=== PATIENT | female | born 1940 | race Caucasian/White ===

== ENCOUNTER 2018-01-24 14:25 | Inpatient (IN) | payer MEDICARE, OTHER ==
[2018-01-24 15:55] LABS: ADD MAN DIFF? NO
[2018-01-24 15:56] LABS: WHITE BLOOD COUNT 13.4 10^3/ul (4.8-10.8)
[2018-01-24 15:56] LABS: BASOPHILS % 0.3 % (0.0-2.0); EOSINOPHILS # 0.2 10^3/ul (0.0-0.5); EOSINOPHILS % 1.6 % (0.0-7.0); HEMATOCRIT 31.5 % (37.0-47.0); HEMOGLOBIN 9.9 g/dl (12.0-16.0); LYMPHOCYTES # 4.7 10^3/ul (0.8-2.9); LYMPHOCYTES % 35.3 % (15.0-51.0); MEAN CORPUSCULAR HEMOGLOBIN 23.1 pg (29.0-33.0); MEAN CORPUSCULAR HGB CONC 31.4 g/dl (32.0-37.0); MEAN CORPUSCULAR VOLUME 73.6 fl (82.0-101.0); MEAN PLATELET VOLUME 10.6 fl (7.4-10.4); MONOCYTE # 1.4 10^3/ul (0.3-0.9); MONOCYTES % 10.2 % (0.0-11.0); NEUTROPHILS % 52.1 % (39.0-77.0); PLATELET COUNT 579 10^3/UL (140-415); RED BLOOD COUNT 4.28 10^6/ul (4.20-5.40); RED CELL DISTRIBUTION WIDTH 21.5 % (11.5-14.5)
[2018-01-24] MEDS: HEPARIN 25000 UNITS/250 ML 250 ML IV (16:09)
[2018-01-24 16:14] LABS: INR 2.14; PROTIME 24.4 Sec (11.9-14.9); PT RATIO 1.9
[2018-01-24 16:15] LABS: PARTIAL THROMBOPLASTIN TIME 60.2 Sec (25.0-35.0)
[2018-01-24 16:23] LABS: ALANINE AMINOTRANSFERASE 28 IU/L (13-69); ALBUMIN 2.9 g/dl (3.3-4.9); ALBUMIN/GLOBULIN RATIO 0.85; ALKALINE PHOSPHATASE 215 IU/L (42-121); ANION GAP 15 (8-16); ASPARTATE AMINO TRANSFERASE 15 IU/L (15-46); BLOOD UREA NITROGEN 46 mg/dl (7-20); CALCIUM 9.4 mg/dl (8.4-10.2); CARBON DIOXIDE 16 mmol/L (21-31); CHLORIDE 122 mmol/L (97-110); CREATININE 1.24 mg/dl (0.44-1.00); GLUCOSE 122 mg/dl (70-220); POTASSIUM 3.3 mmol/L (3.5-5.1); SODIUM 150 mmol/L (135-144); TOTAL PROTEIN 6.3 g/dl (6.1-8.1)
[2018-01-24] MEDS: SOD CHLORIDE 0.9% 1,000 ML IV (19:12)
[2018-01-24] MEDS ORDERED: SOD CHLORIDE 0.9% 1,000 ML IV (19:19)
[2018-01-24] MEDS ORDERED: ACETAMINOPHEN 325 MG TAB PO (19:30)
[2018-01-24] MEDS ORDERED: ONDANSETRON 4 MG INJ IV ×2 (19:30→20:00)
[2018-01-24] MEDS ORDERED: DOCUSATE SODIUM 100 MG CAP PO (20:00)
[2018-01-24] MEDS ORDERED: BISACODYL (EC) 5 MG TAB PO (20:00)
[2018-01-24] MEDS ORDERED: NACL 0.9% 3 ML SYG IV (20:00)
[2018-01-24 21:29] LABS: HAAIG REFLEX REFLEX FILED
[2018-01-24 21:59] LABS: LACTIC ACID 1.8 mmol/L (0.5-2.0)
[2018-01-24 22:49] LABS: IRON 18 ug/dl (35-150)
[2018-01-24 22:58] LABS: % IRON SATURATION 8 % SAT (22-52); TOTAL IRON BINDING CAPACITY 216 ug/dl (241-421)
[2018-01-24 23:05] LABS: HEPATITIS B SURFACE ANTIBODY NEGATIVE (NEGATIVE)
[2018-01-24] MEDS: D5W + KCL 20 MEQ 1,000 ML IV (23:15)
[2018-01-24 23:22] LABS: HEPATITIS B SURFACE ANTIGEN NEGATIVE (NEGATIVE)
[2018-01-24 23:39] LABS: HEPATITIS B CORE ANTIBODY NEGATIVE (NEGATIVE); HEPATITIS C VIRAL ANTIBODY NEGATIVE (NEGATIVE)
[2018-01-25 00:27] LABS: INR 2.02; PROTIME 23.3 Sec (11.9-14.9); PT RATIO 1.8
[2018-01-25 01:35] LABS: PARTIAL THROMBOPLASTIN TIME 79.9 Sec (25.0-35.0)
[2018-01-25] MEDS: morphine 2 MG INJ IV ×2 (05:14→17:08)
[2018-01-25 06:09] LABS: ADD MAN DIFF? NO
[2018-01-25 06:21] LABS: ABNORMAL IP MESSAGE 1; BASOPHILS % 0.3 % (0.0-2.0); EOSINOPHILS # 0.2 10^3/ul (0.0-0.5); EOSINOPHILS % 1.3 % (0.0-7.0); HEMATOCRIT 33.7 % (37.0-47.0); HEMOGLOBIN 10.3 g/dl (12.0-16.0); LYMPHOCYTES # 4.2 10^3/ul (0.8-2.9); LYMPHOCYTES % 36.3 % (15.0-51.0); MEAN CORPUSCULAR HEMOGLOBIN 22.5 pg (29.0-33.0); MEAN CORPUSCULAR HGB CONC 30.6 g/dl (32.0-37.0); MEAN CORPUSCULAR VOLUME 73.6 fl (82.0-101.0); MEAN PLATELET VOLUME 10.9 fl (7.4-10.4); MONOCYTES % 8.4 % (0.0-11.0); NEUTROPHIL # 6.2 10^3/ul (1.6-7.5); NEUTROPHILS % 53.1 % (39.0-77.0); PLATELET COUNT 418 10^3/UL (140-415); RED BLOOD COUNT 4.58 10^6/ul (4.20-5.40); RED CELL DISTRIBUTION WIDTH 22.1 % (11.5-14.5)
[2018-01-25 06:21] LABS: WHITE BLOOD COUNT 11.7 10^3/ul (4.8-10.8)
[2018-01-25 06:38] LABS: POSITIVE DIFF @See below
[2018-01-25 06:49] LABS: ALANINE AMINOTRANSFERASE 19 IU/L (13-69); ALBUMIN 3.2 g/dl (3.3-4.9); ALBUMIN/GLOBULIN RATIO 0.88; ALKALINE PHOSPHATASE 207 IU/L (42-121); ANION GAP 16 (8-16); ASPARTATE AMINO TRANSFERASE 28 IU/L (15-46); BILIRUBIN,INDIRECT 0.1 mg/dl (0-1.1); BILIRUBIN,TOTAL 0.1 mg/dl (0.2-1.3); BLOOD UREA NITROGEN 46 mg/dl (7-20); CALCIUM 9.6 mg/dl (8.4-10.2); CARBON DIOXIDE 18 mmol/L (21-31); CHLORIDE 119 mmol/L (97-110); CREATININE 1.14 mg/dl (0.44-1.00); GLUCOSE 143 mg/dl (70-220); MAGNESIUM 1.7 mg/dl (1.7-2.5); POTASSIUM 3.8 mmol/L (3.5-5.1); SODIUM 149 mmol/L (135-144); TOTAL PROTEIN 6.8 g/dl (6.1-8.1)
[2018-01-25 07:00] LABS: TOTAL IRON BINDING CAPACITY 200 ug/dl (241-421)
[2018-01-25 07:02] LABS: IRON < 10 ug/dl (35-150)
[2018-01-25 08:25] LABS: HEMOGLOBIN A1C 7.5 % (0-5.9)
[2018-01-25 09:08] LABS: OSMOLALITY 309 mOsm/kg (280-295)
[2018-01-25 09:31] LABS: ADD UMIC NO; UR ASCORBIC ACID 40 mg/dL (NEGATIVE); UR BILIRUBIN (Dip) NEGATIVE (NEGATIVE); UR BLOOD (Dip) NEGATIVE (NEGATIVE); UR CLARITY CLEAR (CLEAR); UR COLOR YELLOW (YELLOW); UR GLUCOSE (Dip) NEGATIVE (NEGATIVE); UR KETONES (Dip) NEGATIVE (NEGATIVE); UR LEUKOCYTE ESTERASE (Dip) NEGATIVE Leu/ul (NEGATIVE); UR NITRITE (Dip) NEGATIVE (NEGATIVE); UR TOTAL PROTEIN (Dip) NEGATIVE (NEGATIVE); UR UROBILINOGEN (Dip) NEGATIVE (NEGATIVE)
[2018-01-25 09:49] LABS: SODIUM,URINE RANDOM < 13 mmol/L (30-90)
[2018-01-25] MEDS ORDERED: GLUCOSE GEL 15 GRAM TUBE PO ×2 (10:00)
[2018-01-25] MEDS ORDERED: DEXTROSE 50% 50 ML SYRINGE IV ×2 (10:00)
[2018-01-25] MEDS ORDERED: GLUCAGON 1 MG INJ IM (10:00)
[2018-01-25] MEDS ORDERED: GLUCOSE GEL 15 GRAM TUBE BUCCAL (10:00)
[2018-01-25 10:26] LABS: OSMOLALITY,URINE 602 mOsm/kg (250-1200)
[2018-01-25] MEDS: INSULIN ASPART [NOVOLOG] 3 ML PEN SC ×3 (12:02→21:00)
[2018-01-25] MEDS: D5W + KCL 20 MEQ 1,000 ML IV ×3 (12:33→21:16)
[2018-01-25 13:26] LABS: ANION GAP 14 (8-16); BLOOD UREA NITROGEN 42 mg/dl (7-20); CALCIUM 9.3 mg/dl (8.4-10.2); CARBON DIOXIDE 17 mmol/L (21-31); CHLORIDE 118 mmol/L (97-110); CREATININE 1.07 mg/dl (0.44-1.00); GLUCOSE 172 mg/dl (70-220); POTASSIUM 3.7 mmol/L (3.5-5.1); SODIUM 145 mmol/L (135-144)
[2018-01-25 16:06] LABS: ANION GAP 13 (8-16); BLOOD UREA NITROGEN 40 mg/dl (7-20); CALCIUM 9.1 mg/dl (8.4-10.2); CARBON DIOXIDE 18 mmol/L (21-31); CHLORIDE 117 mmol/L (97-110); CREATININE 1.05 mg/dl (0.44-1.00); GLUCOSE 181 mg/dl (70-220); POTASSIUM 3.8 mmol/L (3.5-5.1); SODIUM 144 mmol/L (135-144)
[2018-01-25] MEDS: ERGOCALCIFEROL 50,000 UNIT CAP PO (18:00)
[2018-01-25] MEDS ORDERED: GUAIFENESIN 20 MG/ML 5ML CUP PO (18:00)
[2018-01-25] MEDS ORDERED: LOPERAMIDE 2 MG CAP PO (18:00)
[2018-01-25] MEDS ORDERED: MAGNESIUM HYDROXIDE 30ML CUP PO (18:00)
[2018-01-25] MEDS ORDERED: MINERAL OIL 133 ML ENEMA PR (18:00)
[2018-01-25 18:43] LABS: ANION GAP 16 (8-16); BLOOD UREA NITROGEN 38 mg/dl (7-20); CALCIUM 9.4 mg/dl (8.4-10.2); CARBON DIOXIDE 17 mmol/L (21-31); CHLORIDE 115 mmol/L (97-110); CREATININE 1.01 mg/dl (0.44-1.00); GLUCOSE 145 mg/dl (70-220); POTASSIUM 3.6 mmol/L (3.5-5.1); SODIUM 144 mmol/L (135-144)
[2018-01-25] MEDS: COLCHICINE 0.6 MG TAB PO (21:17)
[2018-01-25] MEDS: ROPINIROLE 0.25 MG TAB PO (21:17)
[2018-01-25] MEDS: LEVETIRACETAM 500 MG TAB PO (21:18)
[2018-01-25] MEDS: AMIODARONE 200 MG TAB PO (21:18)
[2018-01-25] MEDS: APIXABAN 5 MG TABLET PO (21:18)
[2018-01-25] MEDS: LOSARTAN 25 MG TAB PO (21:18)
[2018-01-25 21:19] LABS: ANION GAP 15 (8-16); BLOOD UREA NITROGEN 37 mg/dl (7-20); CALCIUM 9.3 mg/dl (8.4-10.2); CARBON DIOXIDE 17 mmol/L (21-31); CHLORIDE 116 mmol/L (97-110); CREATININE 0.94 mg/dl (0.44-1.00); GLUCOSE 131 mg/dl (70-220); POTASSIUM 3.8 mmol/L (3.5-5.1); SODIUM 144 mmol/L (135-144)
[2018-01-26] MEDS: morphine 2 MG INJ IV (00:51)
[2018-01-26 01:22] LABS: ANION GAP 19 (8-16); BLOOD UREA NITROGEN 36 mg/dl (7-20); CALCIUM 9.4 mg/dl (8.4-10.2); CARBON DIOXIDE 16 mmol/L (21-31); CHLORIDE 114 mmol/L (97-110); CREATININE 0.96 mg/dl (0.44-1.00); GLUCOSE 175 mg/dl (70-220); SODIUM 145 mmol/L (135-144)
[2018-01-26] MEDS: ACCU-CHEK XX (01:57)
[2018-01-26] MEDS: LORAZEPAM 2 MG INJ IV (04:33)
[2018-01-26] MEDS: INSULIN ASPART [NOVOLOG] 3 ML PEN SC ×4 (07:55→21:36)
[2018-01-26] MEDS: PANTOPRAZOLE (EC) 40 MG TAB PO (08:10)
[2018-01-26 08:32] LABS: ADD MAN DIFF? NO
[2018-01-26 08:40] LABS: ABNORMAL IP MESSAGE 1; BASOPHIL # 0.1 10^3/ul (0.0-0.1); BASOPHILS % 0.4 % (0.0-2.0); EOSINOPHILS # 0.1 10^3/ul (0.0-0.5); EOSINOPHILS % 0.7 % (0.0-7.0); HEMATOCRIT 33.6 % (37.0-47.0); HEMOGLOBIN 10.4 g/dl (12.0-16.0); LYMPHOCYTES # 5.1 10^3/ul (0.8-2.9); LYMPHOCYTES % 38.8 % (15.0-51.0); MEAN CORPUSCULAR HEMOGLOBIN 22.9 pg (29.0-33.0); MEAN PLATELET VOLUME 11.4 fl (7.4-10.4); MONOCYTE # 1.1 10^3/ul (0.3-0.9); MONOCYTES % 8.4 % (0.0-11.0); NEUTROPHIL # 6.7 10^3/ul (1.6-7.5); NEUTROPHILS % 51.1 % (39.0-77.0); NUCLEATED RED BLOOD CELLS% 0.2 /100WBC (0.0-0.0); PLATELET COUNT 389 10^3/UL (140-415); RED BLOOD COUNT 4.54 10^6/ul (4.20-5.40); RED CELL DISTRIBUTION WIDTH 22.3 % (11.5-14.5)
[2018-01-26] MEDS: ERGOCALCIFEROL 50,000 UNIT CAP PO (08:44)
[2018-01-26] MEDS: DOCUSATE SODIUM 100 MG CAP PO (08:44)
[2018-01-26] MEDS: COLCHICINE 0.6 MG TAB PO ×2 (08:45→21:22)
[2018-01-26] MEDS: APIXABAN 5 MG TABLET PO ×2 (08:45→21:23)
[2018-01-26] MEDS: ROPINIROLE 0.25 MG TAB PO ×3 (08:45→21:22)
[2018-01-26] MEDS: LEVETIRACETAM 500 MG TAB PO ×2 (08:46→21:23)
[2018-01-26] MEDS: AMIODARONE 200 MG TAB PO ×2 (08:46→21:23)
[2018-01-26] MEDS: AMLODIPINE 5 MG TAB PO (08:47)
[2018-01-26] MEDS: LOSARTAN 25 MG TAB PO ×2 (08:47→21:22)
[2018-01-26] MEDS: LORATADINE 10 MG TAB PO (08:48)
[2018-01-26] MEDS: ASCORBIC ACID 500 MG TAB PO (08:48)
[2018-01-26] MEDS: MULTIVITAMINS THERAPEUTIC TAB PO (08:48)
[2018-01-26 08:54] LABS: POSITIVE DIFF @See below
[2018-01-26] MEDS ORDERED: NON-FORMULARY/PATIENT OWN MED (Amino Acids/Protein Hydrolys (Pro-Stat Liquid) 30 ML) PO (09:00)
[2018-01-26] MEDS: D5W + KCL 20 MEQ 1,000 ML IV ×2 (15:58→17:43)
[2018-01-26] MEDS: SOD FERRIC GLUC COMPLX 125 MG in SOD CHLORIDE 0.9% 100 ML IVPB (17:43)
[2018-01-27] MEDS: ACCU-CHEK XX (03:00)
[2018-01-27] MEDS: PANTOPRAZOLE (EC) 40 MG TAB PO (06:43)
[2018-01-27] MEDS: D5W + KCL 20 MEQ 1,000 ML IV ×2 (06:47→20:56)
[2018-01-27] MEDS: INSULIN ASPART [NOVOLOG] 3 ML PEN SC ×4 (09:16→22:15)
[2018-01-27] MEDS: LORATADINE 10 MG TAB PO (09:20)
[2018-01-27] MEDS: MULTIVITAMINS THERAPEUTIC TAB PO (09:20)
[2018-01-27] MEDS: ROPINIROLE 0.25 MG TAB PO ×3 (09:20→22:31)
[2018-01-27] MEDS: DOCUSATE SODIUM 100 MG CAP PO (09:20)
[2018-01-27] MEDS: ASCORBIC ACID 500 MG TAB PO (09:20)
[2018-01-27] MEDS: LEVETIRACETAM 500 MG TAB PO ×2 (09:20→22:30)
[2018-01-27] MEDS: APIXABAN 5 MG TABLET PO ×2 (09:20→22:31)
[2018-01-27] MEDS: LOSARTAN 25 MG TAB PO ×2 (09:21→22:31)
[2018-01-27] MEDS: COLCHICINE 0.6 MG TAB PO ×2 (09:21→22:31)
[2018-01-27] MEDS: AMLODIPINE 5 MG TAB PO (09:21)
[2018-01-27] MEDS: AMIODARONE 200 MG TAB PO ×2 (09:21→22:30)
[2018-01-27] MEDS: SOD FERRIC GLUC COMPLX 125 MG in SOD CHLORIDE 0.9% 100 ML IVPB (17:31)
[2018-01-28] MEDS: ACCU-CHEK XX (02:43)
[2018-01-28] MEDS: LORAZEPAM 2 MG INJ IV ×2 (03:25→23:38)
[2018-01-28] MEDS ORDERED: METOPROLOL 5 MG INJ (04:21)
[2018-01-28] MEDS: METOPROLOL 5 MG INJ IV (04:33)
[2018-01-28] MEDS: MULTIVITAMINS THERAPEUTIC TAB PO (08:41)
[2018-01-28] MEDS: ASCORBIC ACID 500 MG TAB PO (08:41)
[2018-01-28] MEDS: LEVETIRACETAM 500 MG TAB PO ×2 (08:41→21:03)
[2018-01-28] MEDS: APIXABAN 5 MG TABLET PO ×2 (08:42→21:03)
[2018-01-28] MEDS: COLCHICINE 0.6 MG TAB PO ×2 (08:42→21:03)
[2018-01-28] MEDS: LORATADINE 10 MG TAB PO (08:42)
[2018-01-28] MEDS: LOSARTAN 25 MG TAB PO ×2 (08:42→21:03)
[2018-01-28] MEDS: ROPINIROLE 0.25 MG TAB PO ×2 (08:42→21:02)
[2018-01-28] MEDS: AMLODIPINE 5 MG TAB PO (08:42)
[2018-01-28] MEDS: PANTOPRAZOLE (EC) 40 MG TAB PO (08:43)
[2018-01-28] MEDS: AMIODARONE 200 MG TAB PO ×2 (08:43→21:04)
[2018-01-28] MEDS: DOCUSATE SODIUM 100 MG CAP PO ×2 (08:43→09:00)
[2018-01-28] MEDS: INSULIN ASPART [NOVOLOG] 3 ML PEN SC ×4 (08:49→21:00)
[2018-01-28] MEDS: CIPROFLOXACIN 400MG/D5W 200 ML IVPB (10:53)
[2018-01-28] MEDS: D5W + KCL 20 MEQ 1,000 ML IV (10:53)
[2018-01-28] MEDS: FLUCONAZOLE 200 MG/NS (PMX) 100 ML IVPB (12:00)
[2018-01-28] MEDS: SOD FERRIC GLUC COMPLX 125 MG in SOD CHLORIDE 0.9% 100 ML IVPB (17:54)
[2018-01-28] MEDS: LACTOBACILLUS RHAMNOSUS CAP PO (21:03)
[2018-01-29] MEDS: ACCU-CHEK XX (02:00)
[2018-01-29] MEDS: D5W + KCL 20 MEQ 1,000 ML IV ×3 (03:44→21:32)
[2018-01-29] MEDS: morphine 2 MG INJ IV (03:48)
[2018-01-29] MEDS: ALBUTEROL/IPRATROPIUM (NEB) 3 ML AMP INH ×2 (04:04→18:11)
[2018-01-29] MEDS: PANTOPRAZOLE (EC) 40 MG TAB PO (06:59)
[2018-01-29] MEDS: INSULIN ASPART [NOVOLOG] 3 ML PEN SC ×4 (08:00→21:23)
[2018-01-29] MEDS: LOSARTAN 25 MG TAB PO ×2 (09:00→21:00)
[2018-01-29] MEDS: LORATADINE 10 MG TAB PO (09:00)
[2018-01-29] MEDS: ASCORBIC ACID 500 MG TAB PO (09:00)
[2018-01-29] MEDS: AMLODIPINE 5 MG TAB PO (09:00)
[2018-01-29] MEDS: MULTIVITAMINS THERAPEUTIC TAB PO (09:00)
[2018-01-29] MEDS: LEVETIRACETAM 500 MG TAB PO (09:00)
[2018-01-29] MEDS: LACTOBACILLUS RHAMNOSUS CAP PO ×2 (09:00→21:13)
[2018-01-29] MEDS: AMIODARONE 200 MG TAB PO ×2 (09:00→23:35)
[2018-01-29] MEDS: APIXABAN 5 MG TABLET PO ×2 (09:00→21:13)
[2018-01-29] MEDS: COLCHICINE 0.6 MG TAB PO (09:00)
[2018-01-29] MEDS: CIPROFLOXACIN 400MG/D5W 200 ML IVPB (10:14)
[2018-01-29] MEDS: FLUCONAZOLE 200 MG/NS (PMX) 100 ML IVPB (12:16)
[2018-01-29] MEDS: SOD FERRIC GLUC COMPLX 125 MG in SOD CHLORIDE 0.9% 100 ML IVPB (16:02)
[2018-01-29] MEDS: NYSTATIN 30 GM POWDER BTL TOP (16:51)
[2018-01-29] MEDS: BALSAM PERU/CASTOR OIL 60 GM TUBE TOP ×2 (16:51→23:33)
[2018-01-29 17:37] LABS: ABNORMAL IP MESSAGE 1; HEMATOCRIT 30.7 % (37.0-47.0); HEMOGLOBIN 9.7 g/dl (12.0-16.0); MEAN CORPUSCULAR HEMOGLOBIN 22.8 pg (29.0-33.0); MEAN CORPUSCULAR HGB CONC 31.6 g/dl (32.0-37.0); MEAN CORPUSCULAR VOLUME 72.1 fl (82.0-101.0); MEAN PLATELET VOLUME 10.4 fl (7.4-10.4); PLATELET COUNT 502 10^3/UL (140-415); RED BLOOD COUNT 4.26 10^6/ul (4.20-5.40)
[2018-01-29 17:37] LABS: WHITE BLOOD COUNT 18.1 10^3/ul (4.8-10.8)
[2018-01-29 17:50] LABS: ADD MAN DIFF? YES; POSITIVE DIFF @See below
[2018-01-29 18:01] LABS: ANION GAP 14 (8-16); BLOOD UREA NITROGEN 14 mg/dl (7-20); CALCIUM 8.7 mg/dl (8.4-10.2); CARBON DIOXIDE 16 mmol/L (21-31); CHLORIDE 113 mmol/L (97-110); CREATININE 0.91 mg/dl (0.44-1.00); GLUCOSE 134 mg/dl (70-220); MAGNESIUM 1.3 mg/dl (1.7-2.5); POTASSIUM 4.6 mmol/L (3.5-5.1); SODIUM 138 mmol/L (135-144)
[2018-01-29 20:11] LABS: ANISOCYTOSIS 1+ (0-0); BAND NEUTROPHILS #M 0.1 10^3/ul (0.0-0.6); BAND NEUTROPHILS % (M) 1 % (0-4); BASOPHIL #M 0.3 10^3/ul (0.0-0.0); BASOPHILS % (M) 2 % (0-2); BURR CELLS 1+ (0-0); EOSINOPHILS % (M) 1 % (0-7); LYMPHOCYTES #M 5.4 10^3/ul (0.8-2.9); LYMPHOCYTES % (M) 30 % (15-51); MICROCYTOSIS 1+ (0-0); MONOCYTE #M 1.6 10^3/ul (0.3-0.9); MONOCYTES % (M) 9 % (0-11); OVALOCYTES 1+ (0-0); PLATELET ESTIMATE NORMAL; POIKILOCYTOSIS 1+ (0-0); POLYCHROMASIA 1+ (0-0); PROMYELOCYTES #M 0.1 10^3/ul (0-0); PROMYELOCYTES % (M) 1 % (0-0); SEG NEUT #M 10.2 10^3/ul (1.6-7.5); SEGMENTED NEUTROPHILS (M) % 56 % (39-77); SMUDGE%M 1 % (0-0)
[2018-01-29] MEDS: LEVETIRACETAM 500 MG (PMX) 100 ML IVPB (21:12)
[2018-01-29] MEDS: ACETAMINOPHEN 325 MG TAB PO (21:15)
[2018-01-30] MEDS: ACCU-CHEK XX (02:00)
[2018-01-30 07:18] LABS: ADD MAN DIFF? NO
[2018-01-30 07:46] LABS: ANION GAP 14 (8-16); BLOOD UREA NITROGEN 14 mg/dl (7-20); CALCIUM 8.7 mg/dl (8.4-10.2); CARBON DIOXIDE 14 mmol/L (21-31); CHLORIDE 116 mmol/L (97-110); CREATININE 0.93 mg/dl (0.44-1.00); GLUCOSE 156 mg/dl (70-220); MAGNESIUM 1.3 mg/dl (1.7-2.5); SODIUM 140 mmol/L (135-144)
[2018-01-30 08:12] LABS: WHITE BLOOD COUNT 14.5 10^3/ul (4.8-10.8)
[2018-01-30 08:12] LABS: ABNORMAL IP MESSAGE 1; BASOPHIL # 0.1 10^3/ul (0.0-0.1); BASOPHILS % 0.4 % (0.0-2.0); EOSINOPHILS # 0.1 10^3/ul (0.0-0.5); HEMATOCRIT 31.3 % (37.0-47.0); HEMOGLOBIN 9.8 g/dl (12.0-16.0); LYMPHOCYTES # 3.5 10^3/ul (0.8-2.9); LYMPHOCYTES % 24.4 % (15.0-51.0); MEAN CORPUSCULAR HGB CONC 31.3 g/dl (32.0-37.0); MEAN CORPUSCULAR VOLUME 73.3 fl (82.0-101.0); MONOCYTE # 1.8 10^3/ul (0.3-0.9); MONOCYTES % 12.7 % (0.0-11.0); NEUTROPHIL # 8.8 10^3/ul (1.6-7.5); NEUTROPHILS % 60.5 % (39.0-77.0); NUCLEATED RED BLOOD CELLS% 0.3 /100WBC (0.0-0.0); PLATELET COUNT 392 10^3/UL (140-415); RED BLOOD COUNT 4.27 10^6/ul (4.20-5.40); RED CELL DISTRIBUTION WIDTH 22.1 % (11.5-14.5)
[2018-01-30 08:13] LABS: POSITIVE DIFF @See below
[2018-01-30] MEDS: FAMOTIDINE 20 MG INJ IV ×2 (08:30→23:08)
[2018-01-30] MEDS: INSULIN ASPART [NOVOLOG] 3 ML PEN SC ×4 (08:32→23:01)
[2018-01-30] MEDS: BALSAM PERU/CASTOR OIL 60 GM TUBE TOP ×2 (08:32→23:09)
[2018-01-30] MEDS: NYSTATIN 30 GM POWDER BTL TOP (08:32)
[2018-01-30] MEDS: LEVETIRACETAM 500 MG (PMX) 100 ML IVPB ×2 (08:34→23:08)
[2018-01-30] MEDS: AMIODARONE 200 MG TAB PO ×3 (08:48→20:27)
[2018-01-30] MEDS: LORATADINE 10 MG TAB PO ×2 (08:48→10:38)
[2018-01-30] MEDS: LOSARTAN 25 MG TAB PO ×3 (08:48→20:27)
[2018-01-30] MEDS: DOCUSATE SODIUM 100 MG CAP PO (08:48)
[2018-01-30] MEDS: ASCORBIC ACID 500 MG TAB PO ×2 (08:49→10:36)
[2018-01-30] MEDS: AMLODIPINE 5 MG TAB PO ×2 (08:49→10:37)
[2018-01-30] MEDS: LACTOBACILLUS RHAMNOSUS CAP PO ×3 (08:49→20:23)
[2018-01-30] MEDS: APIXABAN 5 MG TABLET PO ×3 (08:49→23:08)
[2018-01-30] MEDS: MULTIVITAMINS THERAPEUTIC TAB PO ×2 (08:49→10:37)
[2018-01-30] MEDS: CIPROFLOXACIN 400MG/D5W 200 ML IVPB (09:19)
[2018-01-30] MEDS: ACETAMINOPHEN 325 MG TAB PO ×2 (10:34→20:23)
[2018-01-30] MEDS: MAGNESIUM SULFATE 3 GM in DEXTROSE 5% 100 ML IVPB (11:27)
[2018-01-30] MEDS: FLUCONAZOLE 200 MG/NS (PMX) 100 ML IVPB (14:34)
[2018-01-30] MEDS: D5W + KCL 20 MEQ 1,000 ML IV ×2 (15:23→23:09)
[2018-01-30] MEDS: SOD FERRIC GLUC COMPLX 125 MG in SOD CHLORIDE 0.9% 100 ML IVPB (17:06)
[2018-01-31] MEDS: ACCU-CHEK XX (02:00)
[2018-01-31 06:08] LABS: ADD MAN DIFF? NO
[2018-01-31 06:12] LABS: ABNORMAL IP MESSAGE 1; BASOPHIL # 0.1 10^3/ul (0.0-0.1); BASOPHILS % 0.4 % (0.0-2.0); EOSINOPHILS # 0.1 10^3/ul (0.0-0.5); EOSINOPHILS % 0.7 % (0.0-7.0); HEMATOCRIT 30.8 % (37.0-47.0); LYMPHOCYTES # 4.2 10^3/ul (0.8-2.9); LYMPHOCYTES % 27.4 % (15.0-51.0); MEAN CORPUSCULAR HEMOGLOBIN 23.1 pg (29.0-33.0); MEAN CORPUSCULAR HGB CONC 32.5 g/dl (32.0-37.0); MEAN CORPUSCULAR VOLUME 71.1 fl (82.0-101.0); MEAN PLATELET VOLUME 9.9 fl (7.4-10.4); MONOCYTE # 1.6 10^3/ul (0.3-0.9); MONOCYTES % 10.2 % (0.0-11.0); NEUTROPHIL # 9.3 10^3/ul (1.6-7.5); NEUTROPHILS % 60.7 % (39.0-77.0); NUCLEATED RED BLOOD CELLS% 0.2 /100WBC (0.0-0.0); PLATELET COUNT 558 10^3/UL (140-415); RED BLOOD COUNT 4.33 10^6/ul (4.20-5.40); RED CELL DISTRIBUTION WIDTH 22.4 % (11.5-14.5)
[2018-01-31 06:12] LABS: WHITE BLOOD COUNT 15.4 10^3/ul (4.8-10.8)
[2018-01-31 06:20] LABS: POSITIVE DIFF @See below
[2018-01-31 07:04] LABS: MAGNESIUM 2.1 mg/dl (1.7-2.5)
[2018-01-31 07:05] LABS: ANION GAP 16 (8-16); BLOOD UREA NITROGEN 11 mg/dl (7-20); CALCIUM 8.8 mg/dl (8.4-10.2); CARBON DIOXIDE 16 mmol/L (21-31); CHLORIDE 115 mmol/L (97-110); CREATININE 0.84 mg/dl (0.44-1.00); GLUCOSE 167 mg/dl (70-220); POTASSIUM 4.2 mmol/L (3.5-5.1); SODIUM 143 mmol/L (135-144)
[2018-01-31] MEDS: FAMOTIDINE 20 MG INJ IV (08:50)
[2018-01-31] MEDS: LEVETIRACETAM 500 MG (PMX) 100 ML IVPB (08:50)
[2018-01-31] MEDS: INSULIN ASPART [NOVOLOG] 3 ML PEN SC ×2 (08:56→12:00)
[2018-01-31] MEDS: MULTIVITAMINS THERAPEUTIC TAB PO (09:05)
[2018-01-31] MEDS: APIXABAN 5 MG TABLET PO (09:05)
[2018-01-31] MEDS: LACTOBACILLUS RHAMNOSUS CAP PO (09:06)
[2018-01-31] MEDS: DOCUSATE SODIUM 100 MG CAP PO (09:06)
[2018-01-31] MEDS: ASCORBIC ACID 500 MG TAB PO (09:06)
[2018-01-31] MEDS: LORATADINE 10 MG TAB PO (09:06)
[2018-01-31] MEDS: AMIODARONE 200 MG TAB PO (09:07)
[2018-01-31] MEDS: AMLODIPINE 5 MG TAB PO (09:07)
[2018-01-31] MEDS: LOSARTAN 25 MG TAB PO (09:07)
[2018-01-31] MEDS: BALSAM PERU/CASTOR OIL 60 GM TUBE TOP (09:09)
[2018-01-31] MEDS: NYSTATIN 30 GM POWDER BTL TOP (09:09)
[2018-01-31] MEDS: CIPROFLOXACIN 400MG/D5W 200 ML IVPB (09:22)
[2018-01-31] MEDS: ACETAMINOPHEN 325 MG TAB PO (10:04)
[2018-01-31] MEDS: FLUCONAZOLE 200 MG/NS (PMX) 100 ML IVPB (11:52)
== END 2018-01-31 17:46 | disposition home health service (06) | DRG 299 ==
LOC: MS4 01-27 20:32 → PP2 01-28 22:44 → E/R 14:25 → TEL 19:20
DX: I70.262 Atherosclerosis of native arteries of extremities with gangrene, left leg (principal); G93.49 Other encephalopathy; N17.9 Acute kidney failure, unspecified; E87.0 Hyperosmolality and hypernatremia; E11.52 Type 2 diabetes mellitus with diabetic peripheral angiopathy with gangrene; I48.0 Paroxysmal atrial fibrillation; R13.10 Dysphagia, unspecified; B37.49 Other urogenital candidiasis; I10 Essential (primary) hypertension; I69.354 Hemiplegia and hemiparesis following cerebral infarction affecting left non-dominant side; N39.0 Urinary tract infection, site not specified; E86.0 Dehydration; R13.19 Other dysphagia; I69.391 Dysphagia following cerebral infarction; G40.909 Epilepsy, unspecified, not intractable, without status epilepticus; D50.9 Iron deficiency anemia, unspecified; B96.20 Unspecified Escherichia coli [E. coli] as the cause of diseases classified elsewhere; I70.201 Unspecified atherosclerosis of native arteries of extremities, right leg; M19.90 Unspecified osteoarthritis, unspecified site; M10.9 Gout, unspecified; Z79.02 Long term (current) use of antithrombotics/antiplatelets; Z79.4 Long term (current) use of insulin
CPT/HCPCS: 36415; 70450; 71045; 73630-LT; 76705; 80048; 80053; 81003; 82728; 82962; 83036; 83540; 83605; 83735; 83930; 83935; 84300; 84443; 85025; 85610; 85730; 86704; 86706; 86708; 86709; 86803; 87040; 87075; 87086; 87340; 92610; 93005; 93306; 93926; 93971; 94664; 96372; 96374; 96375; 97161; 99291-25